=== PATIENT | female | born 1980 | race Hispanic/Latino ===

== ENCOUNTER 2017-09-25 14:27 | Emergency (ER) | payer SELFPAY ==
[2017-09-25] MEDS ORDERED: Acetaminophen 500 MG TAB ONE (15:27)
== END 2017-09-25 16:02 | disposition home or self-care (01) ==
LOC: ERS 14:27
DX: J11.1 Influenza due to unidentified influenza virus with other respiratory manifestations (principal); E11.9 Type 2 diabetes mellitus without complications; E78.5 Hyperlipidemia, unspecified; E66.9 Obesity, unspecified; I10 Essential (primary) hypertension; Z79.84 Long term (current) use of oral hypoglycemic drugs
CPT/HCPCS: 99283

== ENCOUNTER 2018-01-16 14:42 | Observation (INO) | payer SELFPAY ==
[2018-01-16 15:30] LABS: Hemoglobin 5.4 g/dL (12.0-16.0); Mean Corpuscular HGB CONC 32.2 g/dL (32.0-36.0); Mean Corpuscular Hemoglobin 25.4 pg (27.0-31.0); Mean Corpuscular Volume 78.6 fl (81.0-99.0); Mean Platelet Volume 8.6 fL (7.4-10.4); Platelet Count 267 thou/uL (130-400); RBC Distribution Width 16.2 % (11.5-14.5); Red Blood Cell (RBC) Count 2.13 mill/uL (4.20-5.40); White Blood Cell (WBC) Count 6.7 thou/uL (4.8-10.8)
[2018-01-16 15:42] LABS: #Eosinphils 0.1 thou/uL (0.0-0.7); #Lymphocytes 1.6 thou/uL (1.20-3.40); #Monocytes 0.5 thou/uL (0.11-0.59); #Neutrophils 4.4 thou/uL (1.40-6.50); %Basophils 0.2 % (0.0-1.0); %Eosinophils 1.9 % (0.0-10.0); %Lymphocytes 24.2 % (21.0-51.0); %Monocytes 7.3 % (0.0-10.0); %Neutrophils 66.4 % (42.0-75.0); Anisocytosis SLIGHT = 6-15 cells (100X) (0-5/hpf); MDiff Complete? YES; Microcytosis SLIGHT = 6-15 cells (100X) (0-5/hpf); Ovalocytes SLIGHT = 2-5 cells (100X) (0-1/hpf); PLT Morphology Comment Appears Adequate; Polychromasia SLIGHT = 2-3 cells (100X) (0-2/hpf); Tear Drops SLIGHT = 2-5 cells (100X) (0-1/hpf)
[2018-01-16 15:45] LABS: ALT (SGPT) 67 U/L (8-55); AST (SGOT) 44 U/L (5-34); Albumin 3.3 g/dL (3.5-5.0); Alkaline Phosphatase 111 U/L (40-150); Anion Gap 9 mmol/L (10-20); BUN (Urea Nitrogen) 10 mg/dL (7.0-18.7); Bilirubin, Total 0.2 mg/dL (0.2-1.2); Calc. Creatinine Clearance 0 mL/min (70-130); Calcium 8.4 mg/dL (7.8-10.44); Carbon Dioxide 24 mmol/L (22-29); Chloride 107 mmol/L (98-107); Estimated GFR-MDRD Greater than 90; Globulin 2.8 g/dL (2.4-3.5); Glucose 184 mg/dL (70-105); Potassium 3.5 mmol/L (3.5-5.1); Protein, Total 6.1 g/dL (6.0-8.3); Sodium 136 mmol/L (136-145)
--- NOTE | 2018-01-16 17:03 | ULT ---
HISTORY: Heavy vaginal bleeding. PELVIC ULTRASOUND: 01/16/18 Multiple longitudinal and transverse images of the pelvis is obtained using a multihertz curvilinear transabdominal as well as multihertz endovaginal transducers. Real time, color flow and spectral wav eform doppler analysis is used to evaluate the pelvis. The uterus measures 10.7 x 5.3 x 6.8 cm. No evidence of uterine masses seen. The endometrium has doub le wall thickness of 2.4 cm. No evidence of free pelvic fluid seen. Both ovaries visualized with good blood flow. Right ovary measures 2.6 x 1.9 x 1.9 cm while the left ovary measures 3.0 x 2.1 x 2.2 cm. Exam is limited due to patient's body habitus. IMPRESSION: Marked endometrial thickening measuring up to 2.4 cm. No other significant abnormality seen. POS: [facility]
[2018-01-16] MEDS ORDERED: Tranexamic Acid 650 MG TAB PO SCH (18:00)
[2018-01-16] MEDS ORDERED: Acetaminophen 325 MG TAB PO PRN (22:08)
[2018-01-16] MEDS ORDERED: Ondansetron HCl/PF 4 MG/2 ML Vial IVP PRN (22:08)
[2018-01-16] MEDS ORDERED: Sodium Chloride 0.9% 1,000 ML IV SCH (22:08)
[2018-01-16] MEDS ORDERED: Ondansetron ODT 4 MG TAB SL PRN (22:08)
--- NOTE | 2018-01-16 23:48 | HP ---
DATE OF ENCOUNTER: 01/16/2018 ADMISSION DIAGNOSES: Symptomatic anemia and menorrhagia resolving. HISTORY OF PRESENT ILLNESS: The patient is a 37-year-old multiparous female who has a longstanding h istory of irregular and infrequent periods. The patient reports that at times, her periods are extre mane heavy when they do come, so she has a history of multiple transfusions. Most recently, the fallon ent was seen in the ER in [place] and was transfused blood, given medroxyprogesterone shot and starte d on Provera. She came to the ER today because she had heavy bleeding yesterday and was symptomatic with shortness of breath and fatigue. On her workup today, the patient was noted to have hemoglobin of 5.4, hematocrit 16.7, platelets of 267,000. The patient was ordered 2 units of packed red blood c ells by the ER physician and admitted to the floor for observation under my name. Upon arrival to [facility] floor, I spoke with the patient who confirmed by history infrequent periods though heavy with histo ry of transfusion all classic for anovulatory bleeding. The patient also reports that she has had 10 0-pound weight gain in the last few years. She reports that she was tested a few years ago for thyro id dysfunction and was normal. PAST MEDICAL HISTORY: Significant for diabetes. Patient had an appointment today to be seen at [facility] but came to the ER given the severity of her concerns. The patient denies fever. She report s fatigue and shortness of breath. She denies chest pain. She denies nausea, vomiting. She reports constipation. She reports vaginal bleeding. Denies any urinary problems. PAST MEDICAL HISTORY: Diabetes, hyperlipidemia, hypertension, obesity. PAST SURGICAL HISTORY: Appendectomy. SOCIAL HISTORY: The patient reports she drinks socially, though has had nothing to drink for several months. Denies drug or tobacco use. ALLERGIES: ASPIRIN. She reports hives and swelling. MEDICATIONS: Patient is on iron, Provera and Depo-Provera shot x1. REVIEW OF SYSTEMS: Per HPI. PHYSICAL EXAMINATION: VITAL SIGNS: On the floor, blood pressure 142/88, pulse of 97, respiratory rate of 20, O2 sats of 98 %. GENERAL: She appears to be in no acute distress. She is alert and oriented, cooperative and pleasan t to interact with. She is morbidly obese. HEENT: Normocephalic, atraumatic. LUNGS: Clear to auscultation bilaterally. CARDIOVASCULAR: Heart has a regular rate and rhythm. ABDOMEN: Obese. PELVIC: Vulva is without mass lesions or erythema. Vagina has some minimal blood, but no active ble eding visible. On speculum exam, cervix visibly closed. Endometrial biopsy was performed at this ti nv with a uterus sounding to 10 cm. There was very generous tissue return. LABORATORY DATA: Again, white count 6.7, hemoglobin 5.4, hematocrit 16.7, platelets 267,000. Sodium 136, potassium 3.5, BUN 10, creatinine 0.61, AST of 44, ALT of 67, glucose of 184. Ultrasound repor t shows a thickened endometrium of an otherwise normal appearing uterus with endometrium measuring 2. 4 cm. Left and right ovaries appeared normal. PROCEDURE NOTE: After being counseled for endometrial biopsy, the patient had provided informed cons ent. She was counseled the risks include bleeding, infection, perforation, pain. We discussed the b enefit of getting a tissue diagnosis, particularly one of cancer or precancer, also stressed the impo rtance of outpatient followup. The patient expressed understanding and desire to proceed. She was p laced in dorsal lithotomy position. With the aid of a speculum, the cervix was identified and graspe d with a single tooth tenaculum on the anterior lip. The 2-mm pipette was then introduced into the u terine cavity noted to be sounding at 10 cm. There is generous tissue return for x2 biopsy pipettes and the procedure was completed. Upon removal of the single tooth tenaculum, there was some bleeding that became hemostatic with pressure. This completed the procedure. Speculum was removed, and the patient was taken out of lithotomy position. Results will be available for the patient to review in the outpatient setting. ASSESSMENT AND PLAN: The patient is a 37-year-old female with a history of abnormal uterine bleeding , likely secondary to anovulation. She has had excessive weight gain for the last couple of years. I have ordered a TSH that is currently pending. The patient is diabetic and does not appear to be on any medications. The patient also reports that she has been bleeding much less today than she has i n the past and is currently taking Provera at home and has had a shot of medroxyprogesterone. Justina friend was given a dose of Lysteda downstairs in the ER to facilitate cessation of her bleeding as well. The patient has interest in going home today with her bleeding under control after the 2 units of pac ked red blood cells were transfused. I have asked the nurse to give me a call once the blood is done for final evaluation. If the patient is without symptoms, we will discharge to home. If she contin ues to feel short of breath, headache or chest pain or dizzy, we will repeat a CBC with plans to dete rmine how much more blood she needs. She will be discharged to home given no concerns with instructi ons to follow up with [facility].
[2018-01-17 02:22] VITALS: BP 134/78; TEMP 98.8
[2018-01-17] MEDS ORDERED: Tranexamic Acid 650 MG TAB PO SCH (09:00)
== END 2018-01-17 00:50 | disposition home or self-care (01) ==
LOC: ERS 14:42 → 3SW 18:00
PROVIDERS: ADMIT Obstetrics & Gynecology; ATTEND Obstetrics & Gynecology
PROC: 0UB97ZX Excision of Uterus, Via Natural or Artificial Opening, Diagnostic (ICD-10-PCS; principal; 2018-01-16)
DX: N93.8 Other specified abnormal uterine and vaginal bleeding (principal); E11.9 Type 2 diabetes mellitus without complications; E78.5 Hyperlipidemia, unspecified; I10 Essential (primary) hypertension; E66.01 Morbid (severe) obesity due to excess calories; Z79.899 Other long term (current) drug therapy; Z88.8 Allergy status to other drugs, medicaments and biological substances
CPT/HCPCS: 36415; 36430; 58100; 76856; 80053; 84443; 85025; 86850; 86900; 86901; 88305; A4353; G0378; P9016

== ENCOUNTER 2021-08-14 17:40 | Emergency (ER) | payer SELFPAY ==
[2021-08-14 18:52] LABS: #Eosinphils 0.2 thou/uL (0.0-0.7); #Lymphocytes 2.1 thou/uL (1.20-3.40); #Monocytes 0.4 thou/uL (0.11-0.59); %Basophils 0.1 % (0.0-1.0); %Eosinophils 3.1 % (0.0-10.0); %Lymphocytes 27.1 % (21.0-51.0); %Monocytes 5.3 % (0.0-10.0); %Neutrophils 64.4 % (42.0-75.0); Hemoglobin 10.2 g/dL (12.0-16.0); Mean Corpuscular Hemoglobin 27.3 pg (27.0-31.0); Mean Corpuscular Volume 82.7 fL (78.0-98.0); Mean Platelet Volume 8.3 fL (7.4-10.4); Platelet Count 294 thou/uL (130-400); RBC Distribution Width 12.9 % (11.5-14.5); Red Blood Cell (RBC) Count 3.74 mill/uL (4.20-5.40); White Blood Cell (WBC) Count 7.7 thou/uL (4.8-10.8)
[2021-08-14 19:01] LABS: BHCG - Serum Negative (NEGATIVE)
[2021-08-14 19:02] LABS: Pregs Control Background? CLEAR/WHITE (CLR/WHITE); Pregs Control Bar Appear? YES (CONTROL BAR)
[2021-08-14 19:10] LABS: ALT (SGPT) 31 U/L (8-55); AST (SGOT) 27 U/L (5-34); Albumin 3.9 g/dL (3.5-5.0); Alkaline Phosphatase 91 U/L (40-110); Anion Gap 11 mmol/L (10-20); BUN (Urea Nitrogen) 12 mg/dL (7.0-18.7); Bilirubin, Total 0.2 mg/dL (0.2-1.2); Calc. Creatinine Clearance 0 mL/min (70-130); Calcium 8.8 mg/dL (7.8-10.44); Carbon Dioxide 25 mmol/L (22-29); Chloride 102 mmol/L (98-107); Globulin 3.6 g/dL (2.4-3.5); Glucose 284 mg/dL (70-105); Protein, Total 7.5 g/dL (6.0-8.3); Sodium 134 mmol/L (136-145)
== END 2021-08-14 21:52 | disposition home or self-care (01) ==
LOC: ERS 17:40
DX: N93.9 Abnormal uterine and vaginal bleeding, unspecified (principal); E11.9 Type 2 diabetes mellitus without complications; E66.9 Obesity, unspecified; Z79.84 Long term (current) use of oral hypoglycemic drugs; Z79.899 Other long term (current) drug therapy
CPT/HCPCS: 36415; 80053; 84484; 84703; 85025; 86850; 86900; 86901; 93005

== ENCOUNTER 2022-06-19 21:31 | Emergency (ER) | payer SELFPAY ==
[2022-06-19 23:47] LABS: SARS-CoV-2 NAA Rapid Test Not Detected (NotDetected)
== END 2022-06-19 22:55 | disposition home or self-care (01) ==
LOC: ERS 21:31
DX: B34.9 Viral infection, unspecified (principal); E11.9 Type 2 diabetes mellitus without complications; Z20.822 Contact with and (suspected) exposure to COVID-19
CPT/HCPCS: 99283

== ENCOUNTER 2023-06-23 16:43 | Emergency (ER) | payer SELFPAY ==
[2023-06-23 17:57] LABS: #Eosinphils 0.2 thou/uL (0.0-0.7); #Monocytes 0.4 thou/uL (0.11-0.59); #Neutrophils 4.8 thou/uL (1.40-6.50); %Basophils 0.4 % (0.0-1.0); %Eosinophils 3.1 % (0.0-10.0); %Lymphocytes 25.1 % (21.0-51.0); %Monocytes 5.7 % (0.0-10.0); %Neutrophils 65.4 % (42.0-75.0); Hematocrit 41.5 % (36.0-47.0); Hemoglobin 13.9 g/dL (12.0-16.0); Mean Corpuscular HGB CONC 33.5 g/dL (32.0-36.0); Mean Corpuscular Hemoglobin 28.6 pg (27.0-31.0); Mean Corpuscular Volume 85.4 fl (78.0-98.0); Mean Platelet Volume 11.1 fL (7.4-10.4); Platelet Count 271 10x3/uL (130-400); RBC Distribution Width 13.6 % (11.5-14.5); Red Blood Cell (RBC) Count 4.86 mill/uL (4.20-5.40); White Blood Cell (WBC) Count 7.4 10x3/uL (4.8-10.8)
[2023-06-23 18:06] LABS: BHCG - Serum Negative (NEGATIVE); Pregs Control Background? CLEAR/WHITE (CLR/WHITE); Pregs Control Bar Appear? YES (CONTROL BAR)
[2023-06-23 18:13] LABS: ALT (SGPT) 19 U/L (8-55); AST (SGOT) 13 U/L (5-34); Albumin 4.1 g/dL (3.5-5.0); Alkaline Phosphatase 94 U/L (40-110); Anion Gap 12 mmol/L (10-20); BUN (Urea Nitrogen) 10 mg/dL (7.0-18.7); Bilirubin, Total 0.4 mg/dL (0.2-1.2); Calc. Creatinine Clearance 0 mL/min (70-130); Calcium 9.1 mg/dL (7.8-10.44); Carbon Dioxide 23 mmol/L (22-29); Chloride 103 mmol/L (98-107); Estimated GFR 94; Globulin 3.3 g/dL (2.4-3.5); Glucose 370 mg/dL (70-105); Protein, Total 7.4 g/dL (6.0-8.3); Sodium 134 mmol/L (136-145)
== END 2023-06-23 18:35 | disposition home or self-care (01) ==
LOC: ERS 16:43
DX: R10.2 Pelvic and perineal pain (principal); N93.9 Abnormal uterine and vaginal bleeding, unspecified; E11.9 Type 2 diabetes mellitus without complications; E66.9 Obesity, unspecified
CPT/HCPCS: 36415; 80053; 84703; 85025; 85610; 85730; 86850; 86900; 86901; 99284